=== PATIENT | female | born 1950 | race Native Hawaiian/Other Pacific Islander ===

== ENCOUNTER 2018-08-03 16:48 | Emergency (ER) | payer BC ==
[2018-08-03 16:56] VITALS: O2SAT 99
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
[2018-08-03 18:53] VITALS: BP 161/84; PULSE 100; RESP 20; TEMP 97.6
--- NOTE | 2018-08-04 07:43 | CT ---
Date of service: 08/03/2018 PROCEDURE: CT HEAD WITHOUT CONTRAST. HISTORY: HEADACHE.FALL COMPARISON: None available. TECHNIQUE: Axial computed tomography images were obtained through the head/brain without intravenous contrast. Radiation dose: Total exam DLP = 926.96 mGy-cm. This CT exam was performed using one or more of the following dose reduction techniques: Automated exposure control, adjustment of the mA and/or kV according to patient size, and/or use of iterative reconstruction technique. FINDINGS: HEMORRHAGE: No intracranial hemorrhage. BRAIN: No mass effect or edema. Scattered focal lucencies in the subcortical and periventricular white matter suggestive for chronic microvascular ischemic change. . VENTRICLES: Unremarkable. No hydrocephalus. CALVARIUM: Unremarkable. PARANASAL SINUSES: Moderate to severe mucosal thickening and opacification of the ethmoid air cells and to a lesser extent the visualized maxillary and sphenoid sinuses as well as the frontal sinus. MASTOID AIR CELLS: Partial opacification of the right mastoid air cells. OTHER FINDINGS: None. IMPRESSION: No acute intracranial abnormality. Mild chronic microvascular ischemic changes. Pansinusitis. Partial opacification of the right mastoid air cells. If symptoms persist, consider correlation with MRI. A preliminary report was generated at 6:50 p.m. on 08/03/[address] Lv Au from [facility].
== END 2018-08-03 19:08 | disposition home or self-care (01) ==
LOC: C.ER 16:48
DX: S00.03XA Contusion of scalp, initial encounter (principal); W05.0XXA Fall from non-moving wheelchair, initial encounter; I10 Essential (primary) hypertension; R51 Headache